=== PATIENT | male | born 1950 | race Hispanic/Latino ===

== ENCOUNTER 2018-03-24 12:11 | Emergency (ER) | payer SELFPAY ==
--- NOTE | 2018-03-24 13:19 | CT ---
CT BRAIN WITHOUT CONTRAST: Date: 03/24/18 HISTORY: Dizziness. Paresthesias. COMPARISON: Exam from 2006. FINDINGS: Left basal ganglia hypodensity is similar. No acute territorial infarct or hemorrhage. No midline genoveva ft or mass effect. Calvarium is intact. Paranasal sinuses and mastoids are clear. IMPRESSION: No acute intracranial abnormality. POS: [facility]
[2018-03-24] MEDS ORDERED: diphenhydrAMINE 50 MG/ML VIAL ONE (13:35)
[2018-03-24] MEDS ORDERED: Acetaminophen 500 MG TAB ONE (13:35)
[2018-03-24 14:02] LABS: #Lymphocytes 0.5 thou/uL (1.20-3.40); #Monocytes 0.4 thou/uL (0.11-0.59); #Neutrophils 7.9 thou/uL (1.40-6.50); %Basophils 0.4 % (0.0-1.0); %Eosinophils 0.3 % (0.0-10.0); %Lymphocytes 5.4 % (21.0-51.0); Hemoglobin 13.4 g/dL (14.0-18.0); Mean Corpuscular HGB CONC 34.9 g/dL (32.0-36.0); Mean Corpuscular Volume 91.7 fL (78.0-98.0); Mean Platelet Volume 9.5 fL (7.4-10.4); Platelet Count 93 thou/uL (130-400); RBC Distribution Width 11.8 % (11.5-14.5); Red Blood Cell (RBC) Count 4.18 mill/uL (4.70-6.10); White Blood Cell (WBC) Count 8.8 thou/uL (4.8-10.8)
[2018-03-24 14:18] LABS: Chloride 111 mmol/L (98-107); Potassium 3.8 mmol/L (3.5-5.1); Sodium 142 mmol/L (136-145)
[2018-03-24 14:19] LABS: ALT (SGPT) 28 U/L (8-55); AST (SGOT) 33 U/L (5-34); Albumin 3.8 g/dL (3.4-4.8); Alkaline Phosphatase 93 U/L (40-150); Anion Gap 13 mmol/L (10-20); BUN (Urea Nitrogen) 14 mg/dL (8.4-25.7); Bilirubin, Total 1.8 mg/dL (0.2-1.2); CK (CPK) 171 U/L (30-200); Calc. Creatinine Clearance 0 mL/min (70-130); Carbon Dioxide 22 mmol/L (23-31); Estimated GFR-MDRD Greater than 90; Globulin 2.5 g/dL (2.4-3.5); Glucose 91 mg/dL (80-115); Protein, Total 6.3 g/dL (5.8-8.1)
[2018-03-24 14:21] LABS: Bilirubin Negative (Negative); Blood, Urine Negative (Negative); Clarity CLEAR (Clear); Glucose, Urine (Dipstick) Negative (Negative); Leukocyte Negative (Negative); Nitrite Negative (Negative); Protein, Urine (Dipstick) Negative (Neg-Trace); Specific Gravity, Urine 1.013 (1.002-1.036); pH, Urine 7.5 (5.0-9.0)
[2018-03-24 14:23] LABS: CKMB 2.9 ng/mL (0-6.6); Troponin I 0.014 ng/mL (< 0.028)
[2018-03-24] MEDS ORDERED: Metoclopramide HCl 10 MG/2 ML VIAL ONE (16:33)
[2018-03-24 18:16] LABS: CSF Source CSF; Clarity Clear (Clear); Tube # 1
[2018-03-24 18:17] LABS: CSF Source CSF; Clarity Clear (Clear); RBC Count - Manual 1360 /cumm (None Seen); RBC Count - Manual 2 /cumm (None Seen); Tube # 4; WBC/NonHematics Count - Manual 0 /cumm (0-5); WBC/NonHematics Count - Manual 4 /cumm (0-5)
[2018-03-24 18:22] LABS: Color Of CSF Supernatant COLORLESS (Colorless); Tube # 2; Unspun CSF Color COLORLESS (Colorless)
[2018-03-24 18:31] LABS: CSF, Glucose 52 mg/dl (40-70); CSF, Protein 38 mg/dL (15-40)
== END 2018-03-24 19:24 | disposition home or self-care (01) ==
LOC: ERS 12:11
DX: R51 Headache (principal); R42 Dizziness and giddiness; I10 Essential (primary) hypertension
CPT/HCPCS: 36415; 62270; 70450; 80053; 81003; 82550; 82553; 82945; 84157; 84484; 85025; 87070; 87205; 89051; 93005; 94760; 96361; 96365; 96375; J1200; J2765